=== PATIENT | female | born 1995 | race Hispanic/Latino ===

== ENCOUNTER 2023-12-25 00:07 | Emergency (ER) | payer OTHER, SELFPAY ==
[2023-12-25] MEDS ORDERED: Acetaminophen 325 MG TAB ONE (00:28)
[2023-12-25] MEDS ORDERED: Ketorolac Tromethamine 30 MG (1 mL) VIAL ONE (00:28)
[2023-12-25] MEDS ORDERED: Sodium Chloride 0.9% 1,000 ML ONE (00:28)
[2023-12-25] MEDS ORDERED: cefTRIAXone (ROCEPHIN) 2 GM VIAL ONE (00:28)
[2023-12-25 00:31] LABS: Bilirubin Negative (Negative); Blood, Urine Trace (Negative); Glucose, Urine (Dipstick) Negative (Negative); Ketone, Urine 80 mg/dL (Negative); Leukocyte Trace (Negative); Nitrite Negative (Negative); Protein, Urine (Dipstick) 30 mg/dL (Neg-Trace); Specific Gravity, Urine 1.015 (1.005-1.030)
[2023-12-25 00:34] LABS: Bacteria/HPF 1+ HPF (None Seen); CAUTI Indications for Culture Pelvic or flank pain; Clarity Cloudy (Clear); RBC/HPF 0-3 HPF (0-3); WBC/HPF Greater than 50 HPF (0-3)
[2023-12-25 00:35] LABS: Urine Culture Reflex Yes Yes
[2023-12-25 00:45] LABS: Hematocrit 42.4 % (36.0-47.0); Lymphocytes 10 % (21-51); MDiff Complete? YES; Mean Corpuscular HGB CONC 30.8 g/dL (32.0-36.0); Mean Corpuscular Hemoglobin 25.5 pg (27.0-31.0); Mean Platelet Volume 8.6 fL (7.4-10.4); Monocytes 8 % (0-10); Neutrophil 82 % (42-75); Platelet Count 263 10x3/uL (130-400); RBC Distribution Width 13.1 % (11.5-14.5); Red Blood Cell (RBC) Count 5.11 mill/uL (4.20-5.40); White Blood Cell (WBC) Count 20.4 10x3/uL (4.8-10.8)
[2023-12-25 00:49] LABS: Pregnancy Test - Urine (BHCG) Negative (Negative); Pregu Control Background? CLEAR/WHITE (CLR/WHITE); Pregu Control Bar Appear? YES (CONTROL BAR); Specific Gravity 1.015 (1.002-1.036)
[2023-12-25 00:54] LABS: INR-International Normal Ratio 1.2
[2023-12-25 00:55] LABS: PTT 39.2 sec (22.9-36.1)
[2023-12-25 01:13] LABS: ALT (SGPT) 13 U/L (8-55); AST (SGOT) 18 U/L (5-34); Albumin 4.6 g/dL (3.5-5.0); Alkaline Phosphatase 105 U/L (40-110); Anion Gap 17 mmol/L (10-20); BUN (Urea Nitrogen) 6 mg/dL (7.0-18.7); Bilirubin, Total 0.9 mg/dL (0.2-1.2); Calc. Creatinine Clearance 0 mL/min (70-130); Carbon Dioxide 18 mmol/L (22-29); Chloride 103 mmol/L (98-107); Estimated GFR 109; Globulin 3.4 g/dL (2.4-3.5); Glucose 96 mg/dL (70-105); Potassium 3.1 mmol/L (3.5-5.1); Sodium 135 mmol/L (136-145)
[2023-12-25] MEDS ORDERED: Potassium Chloride 20 MEQ TAB ONE (02:14)
[2023-12-25] MEDS ORDERED: Iopamidol 370 76% 100 ML VIAL ONE (09:00)
== END 2023-12-25 02:33 | disposition home or self-care (01) ==
LOC: MADERS 00:07
DX: N10 Acute pyelonephritis (principal); E87.6 Hypokalemia; R16.0 Hepatomegaly, not elsewhere classified; N83.291 Other ovarian cyst, right side
CPT/HCPCS: 74177; 80053; 81001; 81025; 83605; 85025; 85610; 85730; 87040; 87086; 94760; 96365; 96375; J0696; J1885; J7050; Q9967